=== PATIENT | female | born 1995 | race Caucasian/White ===

== ENCOUNTER 2017-06-25 10:20 | Emergency (ER) | payer BC ==
[2017-06-25] MEDS ORDERED: Sodium Chloride 0.9% 1000 ML 1,000 ML ONE (10:43)
[2017-06-25] MEDS ORDERED: Sodium Chloride 0.9% 1000 ML 1,000 ML IV SCH (10:45)
--- NOTE | 2017-06-25 10:47 | ERPHSYRPT ---
- History of Present Illness Time Seen by Provider: 06/25/17 10:24 Source: patient Exam Limitations: no limitations Patient Subjective Stated Complaint: Pt states "I think I had a miscarraige last night. I am only about 5 weeks I think and I started to bleed. I passed one clot." Triage Nursing Assessment: Pt alert and oriented X 3, skin pwd. PT ambulates with an upright steady gait, able to speak in clear full sentences. Physician History: PT STATES LAST NIGHT SHE PASSED TISSUE PER VAGINA AND SINCE HAS HAD VAGINAL BLEEDING AND LOWER MID ABDOMINAL CRAMPS. PT STATES SHE WENT THROUGH 6 PADS BUT NONE WERE SATURATED WITH BLOOD. LMP WAS 05/25/17 & WNL. PT HAD AN AT 10 YEARS OLD AND HAS ONE 5 YEAR OLD CHILD BORN BY NVD FULL TERM WITHOUT COMPLICATIONS. PT DENIES CHEST PAIN, SHORTNESS OF AIR, VOMITING. Allergies/Adverse Reactions: banana [Banana] Allergy (Verified 03/16/12 22:06) clarithromycin [From Biaxin] Allergy (Verified 03/16/12 22:06) latex [Latex] Allergy (Verified 03/16/12 22:06) laxatives Allergy (Uncoded 03/16/12 22:06) Home Medications: Dextroamphetamine/Amphetamine [Dextroamp-Amphet ER 30 mg Cap] 30 mg PO DAILY [History] Lorazepam [Lorazepam] 1 tab PO BID 06/25/17 [History] Hx Tetanus, Diphtheria Vaccination/Date Given: Yes Hx Influenza Vaccination/Date Given: No Hx Pneumococcal Vaccination/Date Given: No Immunizations Up to Date: Yes - Review of Systems Constitutional: No Fever Respiratory: No Dyspnea Cardiac: No Chest Pain Abdominal/Gastrointestinal: Abdominal Pain, No Vomiting Genitourinary Symptoms: Vaginal Bleeding All Other Systems: Reviewed and Negative - Past Medical History Pertinent Past Medical History: Yes Respiratory History: Asthma Psycho-Social History: Attention Deficit Disorder - Past Surgical History Past Surgical History: Yes Other Surgical History: TONSILECTOMY - Social History Smoking Status: Current every day smoker How long have you smoked: 7 years Exposure to second hand smoke: Yes Drug Use: none Patient Lives Alone: No - Female History Hx Last Menstrual Period: 05/22/2017 Hx Now: (unsure) - Nursing Vital Signs Nursing Vital Signs: Initial Vital Signs Temperature 98.0 F 06/25/17 10:28 Pulse Rate 82 06/25/17 10:28 Respiratory Rate 16 06/25/17 10:28 Blood Pressure 107/64 06/25/17 10:28 O2 Sat by Pulse Oximetry 99 06/25/17 10:28 Pain Scale Pain Intensity 2 - Physical Exam General Appearance: alert Eye Exam: PERRL/EOMI Ears, Nose, Throat Exam: TMs normal, pharynx normal, moist mucous membranes Neck Exam: normal inspection Respiratory Exam: lungs clear Cardiovascular Exam: normal heart sounds Gastrointestinal/Abdomen Exam: soft, normal bowel sounds, tenderness (MILD SUPRAPUBIC TENDERNESS) Back Exam: normal range of motion Extremity Exam: normal inspection, No pedal edema Neurologic Exam: alert, cooperative Skin Exam: warm, dry SpO2 Interpretation: normal SpO2: 99 Oxygen Delivery: Room Air - Course Nursing assessment & vital signs reviewed: Yes - Radiology Ultrasound Exam OB Ultrasound: Other (TECH REPORT: COMPLETE MISCARRIAGE) Ordered Tests: Active Orders 24 hr Category Date Time Status IV Insertion STAT Care 06/25/17 10:39 Active OB <14 WKS ADDL GESTATION [US] Stat Exams 06/25/17 11:47 Ordered AMYLASE Stat Lab 06/25/17 10:49 Completed CBC W DIFF Stat Lab 06/25/17 10:49 Completed CMP Stat Lab 06/25/17 10:49 Completed CULTURE,URINE Stat Lab 06/25/17 10:38 Received HCG, Quantitative (Inhouse) Stat Lab 06/25/17 10:49 Completed LIPASE Stat Lab 06/25/17 10:49 Completed PROTIME WITH INR Stat Lab 06/25/17 10:49 Completed PTT Stat Lab 06/25/17 10:49 Completed UA W/ MICROSCOPIC Stat Lab 06/25/17 10:38 Completed Medication Summary Generic Name Dose Route Start Last Admin Trade Name Freq PRN Reason Stop Dose Admin Sodium Chloride 1,000 mls @ 100 mls/hr 06/25/17 10:45 06/25/17 10:44 Sodium Chloride 0.9% 1000 Ml IV 07/25/17 10:44 100 mls/hr .Q10H LANA Administration Lab/Rad Data: Laboratory Result Diagrams 06/25/17 10:49 06/25/17 10:49 Laboratory Results 06/25/17 06/25/17 06/25/17 Range/Units 10:49 10:49 10:49 WBC 4.4 (4.0-10.5) K/mm3 RBC 4.00 L (4.1-5.4) M/mm3 Hgb 13.2 (12.0-16.0) gm/dl Hct 38.7 (35-47) % MCV 96.8 (78-100) fl MCH 33.0 H (26-32) pg MCHC 34.1 (32-36) g/dl RDW 12.4 (11.5-14.0) % Plt Count 255 (150-450) K/mm3 MPV 9.2 (6-9.5) fl Gran % 57.3 (36.0-66.0) % Eos # (Auto) 0.07 (0-0.5) Absolute Lymphs (auto) 1.42 (1.0-4.6) Absolute Monos (auto) 0.34 (0.0-1.3) Lymphocytes % 32.6 (24.0-44.0) % Monocytes % 7.8 (0.0-12.0) % Eosinophils % 1.6 (0.00-5.0) % Basophils % 0.7 (0.0-0.4) % Absolute Granulocytes 2.50 (1.4-6.9) Basophils # 0.03 (0-0.4) PT 12.0 (9.95-12.35) SECONDS INR 1.08 (0.8-3.0) APTT 30.4 (25.3-37.0) SECONDS Sodium 142 (137-145) mmol/L Potassium 4.1 (3.5-5.1) mmol/L Chloride 108 H (98-107) mmol/L Carbon Dioxide 26 (22-30) mmol/L Anion Gap 12.9 (5-15) MEQ/L BUN 10 (7-17) mg/dL Creatinine 0.61 (0.52-1.04) mg/dL Estimated GFR > 60 ML/MIN Glucose 95 (74-106) mg/dL Calcium 9.6 (8.4-10.2) mg/dL Total Bilirubin 0.40 (0.2-1.3) mg/dL AST 25 (14-36) U/L ALT 29 (0-35) U/L Alkaline Phosphatase 71 (38-126) U/L Serum Total Protein 7.7 (6.3-8.2) g/dL Albumin 4.5 (3.5-5.0) g/dL Amylase 62 (30-110) U/L Lipase 63 (23-300) U/L Beta HCG, Quant 63.02 mIU/ml Ur Collection Type Urine Color (YELLOW) Urine Appearance (CLEAR) Urine pH (5-6) Ur Specific Pierce (1.005-1.025) Urine Protein (Negative) Urine Ketones (NEGATIVE) Urine Blood (0-5) Francisco/ul Urine Nitrite (NEGATIVE) Urine Bilirubin (NEGATIVE) Urine Urobilinogen (0-1) mg/dL Ur Leukocyte Esterase (NEGATIVE) Urine Microscopic RBC (0-2) /HPF Urine Microscopic WBC (0-5) /HPF Ur Epithelial Cells (FEW) /HPF Urine Bacteria (NEGATIVE) /HPF Urine Mucus (NEGATIVE) /HPF Urine Culture Reflexed (NO) Urine Glucose (NEGATIVE) mg/dL Specimen Received 06/25/17 Range/Units 10:38 WBC (4.0-10.5) K/mm3 RBC (4.1-5.4) M/mm3 Hgb (12.0-16.0) gm/dl Hct (35-47) % MCV (78-100) fl MCH (26-32) pg MCHC (32-36) g/dl RDW (11.5-14.0) % Plt Count (150-450) K/mm3 MPV (6-9.5) fl Gran % (36.0-66.0) % Eos # (Auto) (0-0.5) Absolute Lymphs (auto) (1.0-4.6) Absolute Monos (auto) (0.0-1.3) Lymphocytes % (24.0-44.0) % Monocytes % (0.0-12.0) % Eosinophils % (0.00-5.0) % Basophils % (0.0-0.4) % Absolute Granulocytes (1.4-6.9) Basophils # (0-0.4) PT (9.95-12.35) SECONDS INR (0.8-3.0) APTT (25.3-37.0) SECONDS Sodium (137-145) mmol/L Potassium (3.5-5.1) mmol/L Chloride (98-107) mmol/L Carbon Dioxide (22-30) mmol/L Anion Gap (5-15) MEQ/L BUN (7-17) mg/dL Creatinine (0.52-1.04) mg/dL Estimated GFR ML/MIN Glucose (74-106) mg/dL Calcium (8.4-10.2) mg/dL Total Bilirubin (0.2-1.3) mg/dL AST (14-36) U/L ALT (0-35) U/L Alkaline Phosphatase (38-126) U/L Serum Total Protein (6.3-8.2) g/dL Albumin (3.5-5.0) g/dL Amylase (30-110) U/L Lipase (23-300) U/L Beta HCG, Quant mIU/ml Ur Collection Type CLEAN CATCH Urine Color YELLOW (YELLOW) Urine Appearance HAZY (CLEAR) Urine pH 5.0 (5-6) Ur Specific Pierce 1.015 (1.005-1.025) Urine Protein NEGATIVE (Negative) Urine Ketones NEGATIVE (NEGATIVE) Urine Blood 250 (0-5) Francisco/ul Urine Nitrite NEGATIVE (NEGATIVE) Urine Bilirubin NEGATIVE (NEGATIVE) Urine Urobilinogen NORMAL (0-1) mg/dL Ur Leukocyte Esterase TRACE (NEGATIVE) Urine Microscopic RBC 2-5 (0-2) /HPF Urine Microscopic WBC 2-5 (0-5) /HPF Ur Epithelial Cells FEW (FEW) /HPF Urine Bacteria FEW (NEGATIVE) /HPF Urine Mucus SLIGHT (NEGATIVE) /HPF Urine Culture Reflexed YES (NO) Urine Glucose NEGATIVE (NEGATIVE) mg/dL Specimen Received 06/25/17 1200 - Departure Time of Disposition: 13:05 Departure Disposition: Home Clinical Impression: MISCARRIAGE Condition: Stable Critical Care Time: No Referrals: JAYME ULRICH MD [Primary Care Provider] - Instructions: Miscarriage (DC) Additional Instructions: FOLLOW UP WITH PRIVATE DOCTOR TOMORROW. BED REST UNTIL DOCTOR IS SEEN.
[2017-06-25 10:59] LABS: BASOPHIL % 0.7 % (0.0-0.4); Basophil (Absolute #) 0.03 (0-0.4); Eosinophil % 1.6 % (0.00-5.0); Eosinophil (Absolute #) 0.07 (0-0.5); Granulocytes % 57.3 % (36.0-66.0); Hematocrit 38.7 % (35-47); Hemoglobin 13.2 gm/dl (12.0-16.0); Lymphocyte (Absolute #) 1.42 (1.0-4.6); Lymphocytes % 32.6 % (24.0-44.0); Mean Cell Volume 96.8 fl (78-100); Mean Corpuscular Hgb Concent. 34.1 g/dl (32-36); Mean Platelet Volume 9.2 fl (6-9.5); Monocyte (Absolute #) 0.34 (0.0-1.3); Monocytes % 7.8 % (0.0-12.0); Platelet Count 255 K/mm3 (150-450); Red Cell Distribution Width 12.4 % (11.5-14.0); White Blood Count 4.4 K/mm3 (4.0-10.5)
[2017-06-25 11:07] LABS: INR 1.08 (0.8-3.0)
[2017-06-25 11:10] LABS: PTT 30.4 SECONDS (25.3-37.0)
[2017-06-25 11:12] LABS: ALBUMIN 4.5 g/dL (3.5-5.0); ALKALINE PHOSPHATASE 71 U/L (38-126); AMYLASE 62 U/L (30-110); ANION GAP 12.9 MEQ/L (5-15); BLOOD UREA NITROGEN 10 mg/dL (7-17); CHLORIDE 108 mmol/L (98-107); Calcium 9.6 mg/dL (8.4-10.2); Carbon Dioxide 26 mmol/L (22-30); Creatinine 1 0.61 mg/dL (0.52-1.04); Glucose 95 mg/dL (74-106); LIPASE 63 U/L (23-300); Potassium 4.1 mmol/L (3.5-5.1); SGOT/AST 25 U/L (14-36); SGPT/ALT 29 U/L (0-35); SODIUM 142 mmol/L (137-145); Total Protein 7.7 g/dL (6.3-8.2)
[2017-06-25 11:29] LABS: HCG, Quantitative (Inhouse) 63.02 mIU/ml
[2017-06-25 12:33] VITALS: PULSE 80
[2017-06-25 12:41] LABS: Appearance HAZY (CLEAR); Bilirubin NEGATIVE (NEGATIVE); Blood 250 Ery/ul (0-5); Glucose NEGATIVE (NEGATIVE); Ketones NEGATIVE (NEGATIVE); Leukocyte Esterase TRACE (NEGATIVE); Nitrite NEGATIVE (NEGATIVE); Protein,Urine Dip NEGATIVE (Negative); Specific Gravity 1.015 (1.005-1.025); Urobilinogen NORMAL mg/dL (0-1)
[2017-06-25 12:45] LABS: Bacteria FEW /HPF (NEGATIVE); Epithelial Cells FEW /HPF (FEW); Mucus SLIGHT /HPF (NEGATIVE)
[2017-06-25 13:06] VITALS: O2SAT 99
[2017-06-25 13:32] VITALS: BP 108/68
--- NOTE | 2017-06-25 22:56 | XRAY ---
Indication: Bleeding with clots. Two-dimensional transvaginal pelvic ultrasound was performed. Comparison: None Uterus is anteverted measuring 9.2 x 4.3 x 5.6 cm. Myometrium homogeneous. Endometrial stripe measures 4.9 mm. No endometrial cavity mass or fluid collection. Right ovary measures 4.6 x 5.5 x 2.5 cm and the left measures 3.0 x 1.1 x 1.9 cm. Normal follicular cysts and color perfusion bilaterally. 2.8 cm right ovary anechoic cyst. Tiny cul-de-sac fluid presumed physiologic from rupture/leaking cyst. Impression: Dominant right ovary cyst. Tiny cul-de-sac fluid presumed physiologic. Remaining pelvic ultrasound is negative. Comment: Preliminary report was given.
== END 2017-06-25 13:32 | disposition home or self-care (01) ==
LOC: ED 10:20
DX: O03.9 Complete or unspecified spontaneous abortion without complication (principal)
CPT/HCPCS: 36000; 36415; 76817; 80053; 81000; 82150; 83690; 84702; 85025; 85610; 85730; 87086; 96360; 99284

== ENCOUNTER 2018-05-20 18:02 | Observation (INO) | payer BC, OTHER ==
[2018-05-21 10:24] VITALS: BP 112/74; PULSE 89
== END 2018-05-21 10:24 | disposition home or self-care (01) ==
LOC: OB 18:02 → UNDOADMOB 18:02 → UNDODISOB 05-21 10:24
PROVIDERS: ADMIT Family Medicine; ATTEND Family Medicine
DX: Z34.83 Encounter for supervision of other normal pregnancy, third trimester (principal)
CPT/HCPCS: 83986; G0378

== ENCOUNTER 2018-05-31 00:22 | Inpatient (IN) | payer BC, OTHER ==
[2018-05-31] MEDS ORDERED: BRETHINE 1 MG/ML SQ PRN (05:00)
[2018-05-31] MEDS ORDERED: Zofran 4 MG/2 ML VIAL IV PRN (05:00)
[2018-05-31] MEDS ORDERED: PITOCIN 30 UNITS/ LR 500 ML 500 ML IV SCH ×2 (05:00→08:00)
[2018-05-31] MEDS: Lactated Ringers 1,000 ML IV SCH (05:56)
[2018-05-31 06:06] LABS: BASOPHIL % 0.2 % (0.0-0.4); Basophil (Absolute #) 0.03 (0-0.4); Eosinophil % 0.7 % (0.00-5.0); Eosinophil (Absolute #) 0.11 (0-0.5); Granulocyte Absolute (ANC) 11.35 (1.4-6.9); Granulocytes % 76.6 % (36.0-66.0); Hematocrit 36.5 % (35-47); Hemoglobin 12.2 gm/dl (12.0-16.0); Lymphocyte (Absolute #) 2.55 (1.0-4.6); Lymphocytes % 17.2 % (24.0-44.0); Mean Cell Volume 98.9 fl (78-100); Mean Corpuscular Hgb Concent. 33.4 g/dl (32-36); Mean Platelet Volume 9.5 fl (6-9.5); Monocyte (Absolute #) 0.78 (0.0-1.3); Monocytes % 5.3 % (0.0-12.0); Platelet Count 335 K/mm3 (150-450); Red Blood Count 3.69 M/mm3 (4.1-5.4); Red Cell Distribution Width 13.2 % (11.5-14.0); White Blood Count 14.8 K/mm3 (4.0-10.5)
[2018-05-31 06:24] LABS: Amphetamine,Urine NEGATIVE (NEGATIVE); Barbiturate,Urine NEGATIVE (NEGATIVE); Benzodiazepine,Urine NEGATIVE (NEGATIVE); Cocaine,Urine NEGATIVE (NEGATIVE); Methadone,Urine NEGATIVE (NEGATIVE); Opiate,Urine NEGATIVE (NEGATIVE); PCP,Urine NEGATIVE (NEGATIVE); THC,Urine NEGATIVE (NEGATIVE)
[2018-05-31] MEDS ORDERED: XYLOCAINE 1% HCL 20 ML MDV IJ PRN (08:00)
[2018-05-31] MEDS ORDERED: MORPHINE SULFATE 4 MG INJ IV ONE (12:04)
[2018-05-31] MEDS ORDERED: MORPHINE SULFATE 4 MG INJ ONE (12:06)
[2018-05-31] MEDS ORDERED: Restoril 15 MG PO PRN (12:21)
[2018-05-31] MEDS ORDERED: Anucort-HC SUPPOSITORY PR PRN (12:21)
[2018-05-31] MEDS ORDERED: Dermoplast Spray TP PRN (12:21)
[2018-05-31] MEDS ORDERED: Ambien 10 MG PO PRN (12:21)
[2018-05-31] MEDS ORDERED: Dulcolax 10 MG SUPP PR PRN (12:21)
[2018-05-31] MEDS ORDERED: CORTISONE 1% CREAM TP PRN (12:21)
[2018-05-31] MEDS ORDERED: TUCKS TP PRN (12:21)
[2018-05-31] MEDS ORDERED: Mylicon 80MG PO PRN (12:21)
[2018-05-31] MEDS: NORCO 5/325 MG PO PRN ×2 (13:56→22:43)
[2018-05-31] MEDS: MOTRIN 400 MG PO PRN (16:48)
[2018-05-31] MEDS ORDERED: Adacel Vial IM ONE (18:00)
[2018-05-31] MEDS: TYLENOL EXTRA STRENGTH 500 MG PO PRN (18:34)
[2018-05-31] MEDS: Colace 100 MG PO SCH (22:43)
[2018-06-01] MEDS: MOTRIN 400 MG PO PRN ×4 (02:09→22:33)
[2018-06-01] MEDS: Lactated Ringers 1,000 ML IV SCH (02:53)
[2018-06-01 06:11] LABS: BASOPHIL % 0.2 % (0.0-0.4); Basophil (Absolute #) 0.03 (0-0.4); Eosinophil % 0.9 % (0.00-5.0); Eosinophil (Absolute #) 0.12 (0-0.5); Granulocyte Absolute (ANC) 10.19 (1.4-6.9); Granulocytes % 75.5 % (36.0-66.0); Hematocrit 29.5 % (35-47); Hemoglobin 9.7 gm/dl (12.0-16.0); Lymphocyte (Absolute #) 1.92 (1.0-4.6); Lymphocytes % 14.2 % (24.0-44.0); Mean Cell Volume 100.3 fl (78-100); Mean Corpuscular Hgb Concent. 32.9 g/dl (32-36); Mean Platelet Volume 9.7 fl (6-9.5); Monocyte (Absolute #) 1.24 (0.0-1.3); Monocytes % 9.2 % (0.0-12.0); Platelet Count 279 K/mm3 (150-450); Red Blood Count 2.94 M/mm3 (4.1-5.4); Red Cell Distribution Width 13.1 % (11.5-14.0); White Blood Count 13.5 K/mm3 (4.0-10.5)
[2018-06-01 06:37] LABS: Mean Corpuscular Hemoglobin 32.9 pg (26-32)
[2018-06-01] MEDS ORDERED: Sensorcaine 0.25% 10 ML ONE (06:41)
[2018-06-01] MEDS ORDERED: Lactated Ringers 1,000 ML IV ONE ×2 (06:41→07:00)
[2018-06-01] MEDS ORDERED: Reglan 10 MG/2 ML IV SCH (07:00)
[2018-06-01] MEDS ORDERED: Pepcid 20 MG VIAL IV SCH (07:00)
[2018-06-01] MEDS ORDERED: Lactated Ringers 1,000 ML IV SCH (07:00)
[2018-06-01] MEDS ORDERED: BICITRA 30 ML CUP PO SCH (07:00)
[2018-06-01 07:23] VITALS: O2SAT 99
[2018-06-01] MEDS ORDERED: CEFAZOLIN 2 GM-D5W BAG** 2 GM/50 ML ML IV SCH (07:30)
[2018-06-01 07:41] LABS: ABO TYPING O; Antibody Screen NEGATIVE (NEGATIVE); RH TYPING POSITIVE
[2018-06-01] MEDS ORDERED: SUBLIMAZE 100 MCG/2 ML ONE (09:07)
[2018-06-01] MEDS: NORCO 5/325 MG PO PRN ×3 (09:39→22:33)
[2018-06-01] MEDS ORDERED: PHENYLEPHRINE HCL IV ONE (09:59)
[2018-06-01] MEDS ORDERED: DIPRIVAN 200 MG/20 ML IV ONE (09:59)
[2018-06-01] MEDS ORDERED: Zemuron 100 MG/10 ML IV ONE (09:59)
[2018-06-01] MEDS ORDERED: Quelicin Fliptop 200 MG/10 ML IV ONE (09:59)
[2018-06-01] MEDS ORDERED: SUBLIMAZE 100 MCG/2 ML IV ONE (09:59)
[2018-06-01] MEDS ORDERED: Decadron 4 MG INJ IV ONE (09:59)
[2018-06-01] MEDS ORDERED: Xylocaine-Mpf 2% 5 Ml Vial IJ ONE (09:59)
[2018-06-01] MEDS ORDERED: Versed 2 MG/2 ML Injection IV ONE (09:59)
[2018-06-01] MEDS ORDERED: TORAdol 30 mg Injection IV ONE (09:59)
[2018-06-01] MEDS ORDERED: Zofran 4 MG/2 ML VIAL IV ONE (09:59)
[2018-06-01] MEDS ORDERED: FERREX 150 PO SCH (10:00)
[2018-06-01] MEDS ORDERED: NON-FORMULARY ITEM (Prenatal Vits W-Ca,Fe,Fa(<1mg) [Prenatal] 1 EACH) PO SCH (10:00)
--- NOTE | 2018-06-01 10:05 | OP ---
SURGERY DATE/TIME: 06/01/2018 0759 PREOPERATIVE DIAGNOSIS: Patient desires permanent sterilization. POSTOPERATIVE DIAGNOSIS: Patient desires permanent sterilization. PROCEDURES: bilateral tubal ligation. SURGEON: Colten Christian M.D. ANESTHESIA: General by Ramo Corrales CRNA. ESTIMATED BLOOD LOSS: Less than 50 cc. SPECIMENS: Bilateral fallopian tube segments. INDICATIONS: After informed, written consent was obtained and review of previously signed tubal ligation form from 04/07/2018 from the office, I discussed with the patient the accepted failure rate of 1:300, risk of bleeding, infection and damage to surrounding structures. She elected to proceed with elective bilateral tubal ligation and recognized permanent nature of this procedure. DESCRIPTION OF PROCEDURE: She was taken to the OR and underwent general anesthesia. She was prepped and draped in usual sterile fashion. 0.25% Marcaine was used to infiltrate the area of infraumbilical incision with 8 cc used in total. Infraumbilical incision was made by scalpel and carried down to the subcutaneous fat to the level of the fascia. The fascia was grasped with mosquito and then opened carefully using Metzenbaum scissors. The left fallopian tube was first identified and grasped with Bobby carried down to the fimbrial edge to confirm. Next, cautery was used to make a window in the mesoappendix. Proximal and distal segments were then ligated with 0 chromic tie. The interceding tube segment was dissected free with Metzenbaum scissors. The free edge of the tube was cauterized with electrocautery. The same was repeated on the right side with no complications. Both tube segments were sent for pathology testing. Following this both areas were inspected and noted to be hemostatic with no complication. Next, the fascia was closed with 0 Vicryl in a running fashion with good closure and good hemostasis were achieved. The subcutaneous fat was irrigated with warm sterile saline. Finally the skin layer was closed with 4-0 undyed Vicryl in a running subcuticular fashion. Steri-Strips and occlusive dressing were placed over the incision. The patient was transferred to the recovery room in good condition.
[2018-06-01] MEDS: THERAGRAN MULTIVITAMIN PO SCH (10:56)
[2018-06-01] MEDS: Colace 100 MG PO SCH ×2 (10:57→22:32)
[2018-06-01] MEDS: TYLENOL EXTRA STRENGTH 500 MG PO PRN (18:32)
[2018-06-02] MEDS: NORCO 5/325 MG PO PRN ×2 (02:30→07:28)
[2018-06-02] MEDS: MOTRIN 400 MG PO PRN ×2 (04:34→10:33)
--- NOTE | 2018-06-02 08:24 | PCM.DS ---
Discharge Summary Date of Admission: 05/31/18 09:45 Admitting Physician: JAYME ULRICH Consults: Consults on Case 05/31/18 12:21 Notify Physician ROUTINE 06/01/18 07:00 Notify Anesthesia Provider ROUTINE Primary Care Provider: JAYME ULRICH Allergies Allergies latex [Latex] Allergy (Mild, Verified 05/31/18 06:23) Rash clarithromycin [From Biaxin] Allergy (Verified 05/31/18 06:23) sulfamethoxazole [From Bactrim] Adverse Reaction (Verified 06/01/18 07:29) Vomiting trimethoprim [From Bactrim] Adverse Reaction (Verified 06/01/18 07:29) Vomiting laxatives Allergy (Severe, Uncoded 05/20/18 19:53) Vomiting Hospital Summary - Hospital Course Hospital Course: had on 05/31/18 with no complications, had tubal performed by id 06/01 with no complications. patient has mild lochia, pain controlled and tolerating po intake at time of discharge. has a history of severe anxiey, will resume ativan on discharge since she has chose to bottle feed and needs her anxiety medication, has been stable on meds for several years prior to this when it was weaned. - Vitals & Intake/Output Vital Signs: Vital Signs Temperature 97.8 F 06/02/18 02:15 Pulse Rate 81 06/02/18 02:15 Respiratory Rate 18 06/02/18 02:15 Blood Pressure 103/62 06/02/18 02:15 O2 Sat by Pulse Oximetry 99 06/01/18 07:32 Intake & Output: Intake & Output 05/30/18 05/31/18 06/01/18 06/02/18 11:59 11:59 11:59 11:59 Intake Total 2100 5416 Balance 2100 5416 Weight 73.028 kg 73.028 kg - Lab Result Diagrams: 06/01/18 05:10 - Procedures and Test Procedures and Tests throughout Hospitalization: Therapy Orders & Screens 05/31/18 12:05 Standby Routine Comment: Diagnosis: Induction Discharge Exam General Appearance: no apparent distress, alert Respiratory Exam: normal breath sounds, lungs clear, No respiratory distress Cardiovascular Exam: regular rate/rhythm Gastrointestinal/Abdomen Exam: soft, other (infraumbilical incision clean,dry, intact), No tenderness, No mass Extremity Exam: normal inspection, normal range of motion Final Diagnosis/Problem List - Final Discharge Diagnosis/Problem (1) Vaginal delivery Current Visit: Yes Status: Acute (2) Tubal ligation status Current Visit: Yes Status: Acute (3) Anxiety Current Visit: Yes Status: Acute Assessment & Plan: advised not to take norco and lorazepam together, may resume anxiety med after done with norco - Discharge Disposition: Home, Self-Care Condition: Stable Prescriptions: New Lorazepam 0.5 mg [Ativan 0.5 MG] 0.5 mg PO BID PRN #60 tablet Hydrocodone/APAP 5-325 Tab^^^ [Bucks 5-325 Tablet^^^] 1 - 2 tab PO Q4HPRN PRN #30 tablet MDD 6 PRN Reason: Pain Continue Ferrous Sulfate 325 mg [Feosol 325 mg] 325 mg PO DAILY Discontinued Vits W-Ca,Fe,FA(<1Mg) [] 1 each PO DAILY Lorazepam 1 mg [Ativan 1 MG] 1 tab PO TID Follow up with: JAYME ULRICH MD [Primary Care Provider] - 1 Week
[2018-06-02] MEDS: Colace 100 MG PO SCH (09:52)
[2018-06-02] MEDS: THERAGRAN MULTIVITAMIN PO SCH (09:52)
[2018-06-02] MEDS ORDERED: Ativan 1 MG PO SCH (10:00)
[2018-06-02] MEDS ORDERED: FEOSOL 325 MG PO SCH (10:00)
[2018-06-02 10:33] VITALS: BP 116/70; PULSE 93
== END 2018-06-02 12:50 | disposition home or self-care (01) | DRG 798 ==
LOC: OB 05:18 → OBSVTOIN 09:45
PROVIDERS: ADMIT Family Medicine; ATTEND Family Medicine
PROC: 10E0XZZ Delivery of Products of Conception, External Approach (ICD-10-PCS; principal; 2018-05-31)
PROC: 0UL70ZZ Occlusion of Bilateral Fallopian Tubes, Open Approach (ICD-10-PCS; 2018-06-01)
DX: O80 Encounter for full-term uncomplicated delivery (principal); Z37.0 Single live birth; Z3A.39 39 weeks gestation of pregnancy; Z30.2 Encounter for sterilization
CPT/HCPCS: 36415; 80307; 85025; 86850; 86900; 86901; 88302; 90471; 90715; 94799; G0378; J0330; J1100; J1885; J2250; J2270; J2370; J2405; J2590; J2704; J3010; L0625; A9270-GY

== ENCOUNTER 2019-11-30 11:04 | Emergency (ER) | payer OTHER ==
--- NOTE | 2019-11-30 11:37 | ERPHSYRPT ---
- History of Present Illness Time Seen by Provider: 11/30/19 11:31 Source: patient Exam Limitations: no limitations Patient Subjective Stated Complaint: Triage Nursing Assessment: pt to ED sent down from OBGYN office to have cbc, cmp, and beta hcg labs drawn. pt has no complaints currently. reports that she has had tubes tide bilaterally- May 2018. reports having 3 + home tests. was having L sided abd pain (still intermittently, none current), has known cyst to L ovary by PCP and told not to worry about it until it started causing problems. last menstral 3 wks ago. Physician History: Is a 24-year-old 5 para 2 AB 2 who presents with a last menstrual period of 10/09/2019. She developed left pelvic pain and took 2+ tests at home. She had an ultrasound ordered by her BLANKET WINDER OPERATOR yesterday which was negative for anything in the uterus or in the adnexa. Other than the left ovarian cyst which has been there for a while. She is sent to the ER for a CBC CMP and quantitative hCG. She has had a tubal ligation and does not wish to be . Activites at Onset: none Quality: cramping Onset Location: LLQ, pelvic pain Severity of Pain-Max: mild Severity of Pain-Current: mild Sexual intercourse history: less than 2 months ago Modifying Factors: Improves With: nothing Allergies/Adverse Reactions: latex [Latex] Allergy (Mild, Verified 11/30/19 11:24) Rash clarithromycin [From Biaxin] Allergy (Verified 11/30/19 11:24) sulfamethoxazole [From Bactrim] Adverse Reaction (Verified 11/30/19 11:24) Vomiting trimethoprim [From Bactrim] Adverse Reaction (Verified 11/30/19 11:24) Vomiting laxatives Allergy (Severe, Uncoded 11/30/19 11:24) Vomiting Home Medications: Amphet Asp/Amphet/D-Amphet [Adderall 30 mg Tablet] 30 mg PO DAILY 11/30/19 [ History] clonazePAM [Clonazepam] 0.5 mg PO TIDPRN 11/30/19 [History] Hx Tetanus, Diphtheria Vaccination/Date Given: Yes Hx Influenza Vaccination/Date Given: No Hx Pneumococcal Vaccination/Date Given: No Travel Risk - International Travel Have you traveled outside of the country in past 3 weeks: No - Coronavirus Screening Are you exhibiting any of the following symptoms?: No Close contact with a COVID-19 positive Pt in past 14-21 Days: No - Review of Systems Constitutional: No Fever, No Chills Eyes: No Symptoms Ears, Nose, & Throat: No Symptoms Respiratory: No Cough, No Dyspnea Cardiac: No Chest Pain, No Edema, No Syncope Abdominal/Gastrointestinal: No Abdominal Pain, No Nausea, No Vomiting, No Diarrhea Genitourinary Symptoms: Other (Left-sided pelvic pain), No Dysuria Musculoskeletal: No Back Pain, No Neck Pain Skin: No Rash Neurological: No Dizziness, No Focal Weakness, No Sensory Changes Psychological: No Symptoms Endocrine: No Symptoms All Other Systems: Reviewed and Negative - Past Medical History Pertinent Past Medical History: Yes Neurological History: No Pertinent History ENT History: No Pertinent History Cardiac History: No Pertinent History Respiratory History: No Pertinent History Endocrine Medical History: No Pertinent History Musculoskeletal History: No Pertinent History GI Medical History: Hemorrhoids History: No Pertinent History Psycho-Social History: Anxiety, Attention Deficit Disorder Female Reproductive Disorders: No Pertinent History - Past Surgical History Past Surgical History: Yes Neuro Surgical History: No Pertinent History Cardiac: No Pertinent History Respiratory: No Pertinent History Gastrointestinal: No Pertinent History Genitourinary: No Pertinent History Musculoskeletal: No Pertinent History Female Surgical History: No Pertinent History Other Surgical History: TONSILECTOMY, Growth removed from top of her head - Social History Smoking Status: Former smoker How long have you smoked: 7 years Exposure to second hand smoke: Yes Drug Use: none Patient Lives Alone: No - Female History Hx Last Menstrual Period: 3 wks ago Hx Now: (unknown) - Nursing Vital Signs Nursing Vital Signs: Initial Vital Signs Temperature 98.4 F 11/30/19 11:10 Pulse Rate 90 11/30/19 11:10 Respiratory Rate 20 11/30/19 11:10 Blood Pressure 125/86 11/30/19 11:10 O2 Sat by Pulse Oximetry 100 11/30/19 11:10 Pain Scale Pain Intensity 0 - Physical Exam General Appearance: mild distress, alert Eye Exam: PERRL/EOMI, eyes nml inspection Ears, Nose, Throat Exam: normal ENT inspection, TMs normal, pharynx normal, moist mucous membranes Neck Exam: normal inspection, non-tender, supple, full range of motion Respiratory Exam: normal breath sounds, lungs clear, No respiratory distress Cardiovascular Exam: regular rate/rhythm, normal heart sounds, normal peripheral pulses Gastrointestinal/Abdomen Exam: soft, No tenderness, No mass Pelvic Exam: not done (Week was deferred due to a recent transvaginal and transabdominal ultrasound) Back Exam: normal inspection, normal range of motion, No CVA tenderness, No vertebral tenderness Extremity Exam: normal inspection, normal range of motion, pelvis stable Neurologic Exam: alert, oriented x 3, cooperative, senior research associate II-XII nml as tested, normal mood/affect, sensation nml, No motor deficits Skin Exam: normal color, warm, dry Lymphatic Exam: No adenopathy - Course Nursing assessment & vital signs reviewed: Yes Ordered Tests: Active Orders 24 hr Category Date Time Status CBC W DIFF Stat Lab 11/30/19 11:30 Completed CMP Stat Lab 11/30/19 11:30 Completed HCG, Quantitative (Inhouse) Stat Lab 11/30/19 11:30 Completed Lab/Rad Data: Laboratory Result Diagrams 11/30/19 11:30 11/30/19 11:30 Laboratory Results 11/30/19 11/30/19 Range/Units 11:30 11:30 WBC 6.0 (4.0-10.5) K/mm3 RBC 4.58 (4.1-5.4) M/mm3 Hgb 14.7 (12.0-16.0) gm/dl Hct 44.8 (35-47) % MCV 97.8 (78-100) fl MCH 32.1 H (26-32) pg MCHC 32.8 (32-36) g/dl RDW 13.1 (11.5-14.0) % Plt Count 273 (150-450) K/mm3 MPV 9.9 (7.5-11.0) fl Gran % 58.0 (36.0-66.0) % Eos # (Auto) 0.02 (0-0.5) Absolute Lymphs (auto) 2.17 (1.0-4.6) Absolute Monos (auto) 0.30 (0.0-1.3) Lymphocytes % 36.2 (24.0-44.0) % Monocytes % 5.0 (0.0-12.0) % Eosinophils % 0.3 (0.00-5.0) % Basophils % 0.5 (0.0-0.4) % Absolute Granulocytes 3.48 (1.4-6.9) Basophils # 0.03 (0-0.4) Sodium 141 (137-145) mmol/L Potassium 3.5 (3.5-5.1) mmol/L Chloride 103 (98-107) mmol/L Carbon Dioxide 25 (22-30) mmol/L Anion Gap 16.1 H (5-15) MEQ/L BUN 13 (7-17) mg/dL Creatinine 0.74 (0.52-1.04) mg/dL Estimated GFR > 60.0 ML/MIN Glucose 101 (74-106) mg/dL Calcium 10.5 H (8.4-10.2) mg/dL Total Bilirubin 0.80 (0.2-1.3) mg/dL AST 35 (14-36) U/L ALT 26 (0-35) U/L Alkaline Phosphatase 71 (38-126) U/L Serum Total Protein 10.1 H (6.3-8.2) g/dL Albumin 5.9 H (3.5-5.0) g/dL Beta HCG, Quant < 2.39 mIU/ml - Progress Progress: improved Air Movement: good Blood Culture(s) Obtained: No Antibiotics given: No Discussed with : Erlinda Will see patient in: ED - Departure Departure Disposition: Home Clinical Impression: Pelvic pain Condition: Stable Critical Care Time: No Referrals: ESHA SHEPPARD [Primary Care Provider] - Instructions: Acute Pelvic Pain (DC)
[2019-11-30 11:43] LABS: Absolute Neutrophil Ct (ANC) 3.48 (1.4-6.9); BASOPHIL % 0.5 % (0.0-0.4); Basophil (Absolute #) 0.03 (0-0.4); Eosinophil % 0.3 % (0.00-5.0); Eosinophil (Absolute #) 0.02 (0-0.5); Hematocrit 44.8 % (35-47); Hemoglobin 14.7 gm/dl (12.0-16.0); Lymphocyte (Absolute #) 2.17 (1.0-4.6); Lymphocytes % 36.2 % (24.0-44.0); Mean Cell Volume 97.8 fl (78-100); Mean Corpuscular Hemoglobin 32.1 pg (26-32); Mean Corpuscular Hgb Concent. 32.8 g/dl (32-36); Mean Platelet Volume 9.9 fl (7.5-11.0); Platelet Count 273 K/mm3 (150-450); Red Blood Count 4.58 M/mm3 (4.1-5.4); Red Cell Distribution Width 13.1 % (11.5-14.0)
[2019-11-30 12:27] LABS: ALBUMIN 5.9 g/dL (3.5-5.0); ALKALINE PHOSPHATASE 71 U/L (38-126); ANION GAP 16.1 MEQ/L (5-15); BLOOD UREA NITROGEN 13 mg/dL (7-17); CHLORIDE 103 mmol/L (98-107); Calcium 10.5 mg/dL (8.4-10.2); Carbon Dioxide 25 mmol/L (22-30); Creatinine 1 0.74 mg/dL (0.52-1.04); EST GLOMERULAR FILTRATION RATE > 60.0 ML/MIN; Glucose 101 mg/dL (74-106); HCG, Quantitative (Inhouse) < 2.39 mIU/ml; Potassium 3.5 mmol/L (3.5-5.1); SGOT/AST 35 U/L (14-36); SGPT/ALT 26 U/L (0-35); SODIUM 141 mmol/L (137-145); Total Protein 10.1 g/dL (6.3-8.2)
[2019-11-30 13:03] VITALS: BP 103/68; PULSE 78; O2SAT 98
== END 2019-11-30 13:00 | disposition home or self-care (01) ==
LOC: ED 11:04
DX: R10.2 Pelvic and perineal pain (principal); Z33.1 Pregnant state, incidental
CPT/HCPCS: 36415; 80053; 84702; 85025; 99283

== ENCOUNTER 2021-12-08 06:33 | Day surgery (SDC) | payer BC, OTHER ==
[2021-12-08] MEDS ORDERED: Transderm Scop 1.5MG Patch TOP PRN (06:54)
[2021-12-08] MEDS ORDERED: Versed 2 MG/2 ML Injection IV PRN (06:54)
[2021-12-08] MEDS ORDERED: Lactated Ringers 1,000 ML IV SCH (07:00)
[2021-12-08] MEDS ORDERED: XYLOCAINE 1%/Epi 1:100000 MDV 20 ML ONE (07:04)
[2021-12-08] MEDS ORDERED: Versed 2 MG/2 ML Injection ONE (07:29)
[2021-12-08] MEDS ORDERED: CEFAZOLIN 2 GM-D5W BAG** 2 GM/50 ML ML IV ONE (07:29)
[2021-12-08] MEDS ORDERED: Transderm Scop 1.5MG Patch ONE (07:29)
[2021-12-08] MEDS ORDERED: Lactated Ringers 1,000 ML IV ONE (07:30)
[2021-12-08] MEDS ORDERED: CEFAZOLIN 2 GM-D5W BAG** 2 GM/50 ML ML IV SCH (07:30)
[2021-12-08] MEDS ORDERED: DIPRIVAN 200 MG/20 ML IV ONE (08:21)
[2021-12-08] MEDS ORDERED: SUBLIMAZE 100 MCG/2 ML ONE (08:22)
[2021-12-08] MEDS ORDERED: Xylocaine-Mpf 2% 5 Ml Vial ONE (08:24)
[2021-12-08] MEDS ORDERED: Ephedrine Sulfate 50 MG/ML ONE (08:29)
[2021-12-08] MEDS ORDERED: Zofran 4 MG/2 ML VIAL ONE (08:32)
[2021-12-08 09:31] VITALS: O2SAT 100
[2021-12-08 09:41] VITALS: BP 106/83; PULSE 68
--- NOTE | 2021-12-09 08:20 | OP ---
SURGERY DATE/TIME: 12/08/2021 08 PREOPERATIVE DIAGNOSIS: Severe cervical dysplasia high grade lesion. POSTOPERATIVE DIAGNOSIS: Severe cervical dysplasia high grade lesion. PROCEDURE: Loop electrosurgical excision procedure (LEEP). SURGEON: Jozef Peter D.O. FUR DESIGNER: Sunita Novoa, surgical sales representative. ANESTHESIA: General. ESTIMATED BLOOD LOSS: Minimal. COMPLICATIONS: None. INDICATIONS: The risks, benefits, indications and alternatives of the procedure were reviewed with the patient prior to procedure. The patient understood the risk of infection, bleeding, uterine perforation, cervical incompetence and decreased libido associated with this procedure and desires to have this procedure as a possible means to alleviate her current medical condition. DESCRIPTION OF PROCEDURE AND FINDINGS: At this point the patient is taken to the operating room, given general sedation, placed in the dorsal lithotomy position, prepped and draped in the usual sterile fashion. A coated speculum is then placed into the patient's vagina and the cervix injected circumferentially with 1% lidocaine with epinephrine and approximately 10 cc was used. From this point the loop instrument was used to excise the ectocervical portion in a right to left motion where in depth of 7 to 8 mm of ectocervical tissue was excised without complication. An additional 2 to 3 mm of endocervical tissue was excised in a similar fashion. From this point hemostasis was obtained by placing the loop laborer airport maintenance ball on the surface of the cervix and Monsel solution to follow. From this point, all instruments were removed from the patient's vaginal region. The patient was then taken out of anesthesia and was then taken to the recovery room in stable condition. All instruments and laps were accounted for x2.
== END 2021-12-08 09:50 | disposition home or self-care (01) ==
LOC: SDC 06:33
PROVIDERS: ATTEND Obstetrics & Gynecology
DX: D06.1 Carcinoma in situ of exocervix (principal)
CPT/HCPCS: 81025; J0690; J2250; J2405; J2704; J3010; A9270-GY

== ENCOUNTER 2022-06-01 09:26 | Day surgery (SDC) | payer BC, OTHER ==
[~2022-06-01 09:26] MED LIST: Sensorcaine 0.25% 10 ML ONE
[2022-06-01] MEDS ORDERED: Lactated Ringers 1,000 ML IV ONE ×3 (09:29→15:33)
[2022-06-01] MEDS ORDERED: CEFAZOLIN 2 GM-D5W BAG** 2 GM/50 ML ML IV ONE (09:29)
[2022-06-01] MEDS ORDERED: CEFAZOLIN 2 GM-D5W BAG** 2 GM/50 ML ML IV SCH (09:30)
[2022-06-01] MEDS: Lactated Ringers 1,000 ML IV SCH ×2 (09:38→16:06)
[2022-06-01 09:56] LABS: Hematocrit 37.6 % (35-47); Hemoglobin 12.3 g/dL (12.0-16.0); Mean Cell Volume 99.5 fL (78-100); Mean Corpuscular Hemoglobin 32.5 pg (26-32); Mean Corpuscular Hgb Concent. 32.7 g/dL (32-36); Mean Platelet Volume 9.3 fL (7.5-11.0); Platelet Count 262 x10^3/uL (150-450); Red Blood Count 3.78 x10^6/uL (4.1-5.4); Red Cell Distribution Width 12.7 % (11.5-14.0); White Blood Count 3.6 x10^3/uL (4.0-10.5)
[2022-06-01 10:07] LABS: ANION GAP 9.3 MEQ/L (5-15); BLOOD UREA NITROGEN 13 mg/dL (7-17); CHLORIDE 109 mmol/L (98-107); Calcium 8.7 mg/dL (8.4-10.2); Carbon Dioxide 27 mmol/L (22-30); Creatinine 1 0.63 mg/dL (0.52-1.04); EST GLOMERULAR FILTRATION RATE > 60.0 ML/MIN; Glucose 89 mg/dL (74-106); Potassium 4.3 mmol/L (3.5-5.1); SODIUM 141 mmol/L (137-145)
[2022-06-01] MEDS ORDERED: Zemuron 100 MG/10 ML ONE (12:09)
[2022-06-01] MEDS ORDERED: DIPRIVAN 200 MG/20 ML IV ONE (12:09)
[2022-06-01] MEDS ORDERED: Versed 2 MG/2 ML Injection ONE (12:10)
[2022-06-01] MEDS ORDERED: SUBLIMAZE 100 MCG/2 ML ONE ×2 (12:10→14:37)
[2022-06-01] MEDS ORDERED: Xylocaine-Mpf 2% 5 Ml Vial ONE (12:54)
[2022-06-01] MEDS ORDERED: PHENYLEPHRINE HCL ONE (13:02)
[2022-06-01] MEDS ORDERED: Zofran 4 MG/2 ML VIAL ONE (13:25)
[2022-06-01] MEDS ORDERED: TORAdol 30 mg Injection ONE (13:25)
[2022-06-01] MEDS ORDERED: BRIDION 200MG/2ML IV ONE (13:48)
[2022-06-01] MEDS ORDERED: NORCO 5/325 MG PO PRN (15:24)
[2022-06-01] MEDS ORDERED: MORPHINE SULFATE 4 MG INJ IV ONE (15:24)
[2022-06-01 16:06] VITALS: BP 122/84; PULSE 60; O2SAT 97
--- NOTE | 2022-06-02 13:42 | OP ---
SURGERY DATE/TIME: 06/01/2022 1246 PREOPERATIVE DIAGNOSES: 1) Dyspareunia. 2) Left ovarian complex cyst. 3) Menorrhagia. POSTOPERATIVE DIAGNOSES: 1) Dyspareunia. 2) Right ovarian complex cyst. 3) Menorrhagia. 4) Endometriosis. PROCEDURES: 1) Laparoscopic right ovarian cystectomy. 2) D&C with NovaSure ablation. SURGEON: Jozef Peter D.O. POLITICAL ADVISOR: Sunita Novoa surgical assist. ANESTHESIA: General. ESTIMATED BLOOD LOSS: Minimal. COMPLICATIONS: None. INDICATIONS: The risks, benefits, indications and alternatives of the procedure were reviewed with the patient prior to the procedure. The patient understood the risk of infection, bleeding, bowel injury, bladder injury, ureteral injury, uterine perforation and pelvic infection associated with the surgery and desires to have this procedure as a possible means to alleviate her current medical condition. DESCRIPTION OF PROCEDURE AND FINDINGS: At this point the patient is taken to the operating room, given general sedation, placed in dorsal lithotomy position, prepped and draped in the usual sterile fashion. A weighted speculum is then placed in the patient's vagina and the anterior lip of the cervix is grasped with a single tooth tenaculum. From this point a uterine manipulator was then placed in through the endocervical region to manipulate the uterus and elevate the uterus. Attention was then turned to the patient's abdomen where a 5 mm skin incision was made approximately 2 cm above the umbilical fold where a 5 mm trocar and sleeve were advanced under direct visualization where pneumoperitoneum was obtained with 4 liters of CO2 gas. An additional incision was made over the left middle quadrant region where 5 mm incision was made and a 5 mm trocar and sleeve were advanced under direct visualization and a third incision was made 2 cm above the symphysis pubis where a 5 mm incision was made and a 5 mm trocar and sleeve were advanced under direct visualization. A survey of the patient's pelvis and abdomen revealed her to have a right ovarian cyst approximately 4 x 3 cm in dimension and was also noted her to have multiple endometriotic implants on the anterior cul-de-sac, significantly on the posterior cul-de-sac and on the right pelvic side wall, left Jasmeet-Rachele window left side where a peritoneal reflection was noted approximately 3 x 3 cm in dimension. From this point the right ovarian cyst portion was then grasped with grasper and LigaSure was made where a circumferential incision was made and LigaSure was used to excise the cystic portion and hemostasis was obtained by placing bipolar instrument to coagulate the surface of the cystic region where the tissue was removed and sent to pathology. There was no bleeding that was noted after complete resection of the cystic portion of the ovarian cyst. From this point, there were no other abnormalities located within the abdominal or pelvic region. From this point all instruments were removed from the patient's abdominal region and the incisions were closed with 4-0 Monocryl suture. Attention was then turned to the patient's vaginal region where a weighted speculum was then placed and the anterior lip of the cervix grasped with single tooth tenaculum. Endocervical dilators were advanced through the endocervical canal as a means to dilate the cervix and at this point a curette was then placed into the fundus of the uterus and curettage was performed in all quadrants of the uterus retrieving a moderate amount of tissue. From this point the NovaSure instrument was then placed into the uterus and retracting approximately 1 cm with a length of 6 cm and a width of 4.35 cm where the machine was turned on with an ablative time of 1 minute and 1 second. After complete ablation the NovaSure instrument was disengaged and removed from the uterine cavity without complication. From this point all instruments were removed from the patient's vaginal region. The patient was then taken out of the dorsal lithotomy position and was then taken to the recovery room in stable condition. All instruments and laps were accounted for x2.
== END 2022-06-01 16:10 | disposition home or self-care (01) ==
LOC: SDC 09:26
PROVIDERS: ATTEND Obstetrics & Gynecology
DX: N80.9 Endometriosis, unspecified (principal); N94.10 Unspecified dyspareunia; N83.201 Unspecified ovarian cyst, right side; N92.0 Excessive and frequent menstruation with regular cycle
CPT/HCPCS: 36415; 80048; 81025; 85027; 87086; J0690; J1885; J2250; J2270; J2370; J2405; J2704; J3010; A9270-GY